=== PATIENT | female | born 1955 | race Caucasian/White ===

== ENCOUNTER 2018-08-31 16:56 | Observation (INO) ==
[2018-08-31 18:36] LABS: Basophils # 0.1 10*3/uL (0.0-0.2); Basophils % 0.6 % (0.0-0.8); Eosinophils # 0.1 10*3/uL (0.0-0.87); Eosinophils % 1.1 % (0.00-10.9); Hematocrit 38.6 VOL% (35.7-47.0); Immature Granulocytes % 0.5 %; Immature Granulocytes Absolute 0.04 #; Lymphocytes # 0.9 10*3/uL (1.4-4.0); Lymphocytes % 10.9 % (21.3-54.2); Mean Corpuscular HGB Conc 31.1 GM/DL (32-36); Mean Corpuscular Hemoglobin 27 PG (27-34); Mean Corpuscular Volume 86.5 FL (87-102); Mean Platelet Volume 10.7 FL (9.6-12.0); Monocytes # 0.4 10*3/uL (0.11-0.8); Monocytes % 4.9 % (1.7-12.7); Neutrophils # 6.9 10*3/uL (1.4-7.4); Platelet Count 228 T/CUMM (130-400); Red Blood Count 4.46 MC/CUMM (3.8-5.5); White Blood Count 8.4 T/CUMM (4-12)
[2018-08-31 18:44] LABS: INR 0.9; PT Patient Result 9.8 SECS; Partial Thromboplastin Time < 21.0 SECS (0-40)
[2018-08-31 18:48] LABS: Apearance,Urine CLEAR (Clear); Bilirubin,Urine Negative (Negative); Blood, Urine Moderate mg/dL (Negative); Glucose,Urine (UA) Negative (Negative); Hyaline Casts,Urine 1 /LPF (0-3); Ketones,Urine Negative (Negative); Mucus,Urine Occasional /LPF (Occasional); Nitrite,Urine Negative (Negative); Protein,Urine Negative; RBC,Urine 2 /HPF (0-4); Squamous Epithelial Cell,Urine Occasional /HPF (0-10); Urine Color Straw (Yellow); Urine Specific Gravity 1.009 (1.001-1.035); Urine Urobilinogen < 2.0 EU/DL (0.2-1.0); WBC,Urine <1 /HPF (0-6)
[2018-08-31 18:57] LABS: Alanine Aminotransferase 20 U/L (13-56); Albumin 3.8 G/DL (3.4-5.0); Alkaline Phosphatase 83 U/L (45-117); Aspartate Amino Transferase 14 U/L (0-37); Bilirubin,Total < 0.39 MG/DL (0.2-1.0); Blood Urea Nitrogen 30 MG/DL (7-18); Calcium 9.6 MG/DL (8.5-10.1); Glucose 104 MG/DL (74-106); Osmolality,Calculated 284.4 MOS/KG (273-304); Potassium 3.7 MMOL/L (3.5-5.1); Sodium 140 MMOL/L (136-145); Total Protein 8.1 G/DL (6.4-8.3); Troponin I < 0.015 NG/ML (0.00-0.045)
[2018-08-31 19:01] LABS: Barbiturates Screen,Urine Negative (Negative); Benzodiazepines Screen,Urine Negative (Negative); Cannabinoid Screen,Urine Negative (Negative); Opiate Screen,Urine Negative (Negative); Phencyclidine Screen,Urine Negative (Negative)
[2018-08-31] MEDS ORDERED: ASPIRIN EC 325 MG TABLET PO STA (19:19)
[2018-08-31] MEDS ORDERED: GLUCAGON 1 MG VIAL IM PRN (20:36)
[2018-08-31] MEDS ORDERED: DEXTROSE 50% 25 GM/50 ML VIAL IV PRN (20:36)
[2018-08-31] MEDS ORDERED: ONDANSETRON 4 MG/2 ML VIAL IV PRN (20:36)
[2018-08-31] MEDS ORDERED: NITROGLYCERIN SL 0.4 MG TABLET SL PRN (20:50)
[2018-08-31] MEDS ORDERED: SODIUM CHLORIDE 0.9% 1,000 ML IV SCH (21:00)
[2018-08-31] MEDS ORDERED: ALBUTEROL/IPRATROPIUM 3 ML NEB RESP TX PRN (21:02)
[2018-08-31] MEDS: GABAPENTIN 300 MG CAPSULE PO SCH (22:50)
[2018-08-31] MEDS: ATORVASTATIN 80 MG TABLET PO SCH (22:50)
[2018-08-31] MEDS: ENOXAPARIN 40 MG/0.4 ML SYRINGE SUBCUT SCH (22:50)
[2018-08-31] MEDS: busPIRone 15 MG TABLET PO SCH (22:50)
[2018-09-01] MEDS ORDERED: GLUCAGON 1 MG VIAL IM PRN (01:32)
[2018-09-01] MEDS ORDERED: DEXTROSE 50% 25 GM/50 ML VIAL IV PRN (01:32)
[2018-09-01] MEDS: ACETAMINOPHEN 325 MG TABLET PO PRN ×2 (02:55→20:53)
[2018-09-01 04:21] LABS: Basophils % 0.7 % (0.0-0.8); Eosinophils # 0.1 10*3/uL (0.0-0.87); Eosinophils % 2.4 % (0.00-10.9); Hematocrit 34.4 VOL% (35.7-47.0); Hemoglobin 10.4 GM/DL (12.0-16.0); Immature Granulocytes % 0.3 %; Immature Granulocytes Absolute 0.02 #; Lymphocytes # 1.2 10*3/uL (1.4-4.0); Lymphocytes % 21.2 % (21.3-54.2); Mean Corpuscular HGB Conc 30.2 GM/DL (32-36); Mean Corpuscular Hemoglobin 26 PG (27-34); Mean Platelet Volume 10.6 FL (9.6-12.0); Monocytes # 0.5 10*3/uL (0.11-0.8); Monocytes % 7.8 % (1.7-12.7); Neutrophils # 3.9 10*3/uL (1.4-7.4); Neutrophils % 67.6 % (38.7-73.9); Platelet Count 226 T/CUMM (130-400); White Blood Count 5.8 T/CUMM (4-12)
[2018-09-01 04:52] LABS: Calcium 9.2 MG/DL (8.5-10.1); Osmolality,Calculated 284.3 MOS/KG (273-304); Potassium 3.3 MMOL/L (3.5-5.1); Thyroid Stimulating Hormone 1.47 uIU/ml (0.358-3.74)
[2018-09-01 04:54] LABS: Risk Ratio 3.31; VLDL CHOLESTEROL 40.6 MG/DL
[2018-09-01] MEDS ORDERED: [UNRECOGNIZED DRUG - OTHER] PO SCH (09:00)
[2018-09-01] MEDS ORDERED: LEVOCETIRIZINE DIHYDROCHLORIDE 5 MG PO SCH (09:00)
[2018-09-01] MEDS: CHOLECALCIFEROL 1,000 UNIT TABLET PO SCH (09:06)
[2018-09-01] MEDS: LOSARTAN/HCTZ 50-12.5 MG TABLET PO SCH (09:07)
[2018-09-01] MEDS: CLOPIDOGREL 75 MG TABLET PO SCH (09:07)
[2018-09-01] MEDS: METOPROLOL SUCCINATE XL 50 MG TABLET PO SCH (09:07)
[2018-09-01] MEDS: FUROSEMIDE 40 MG TABLET PO SCH (09:07)
[2018-09-01] MEDS: PANTOPRAZOLE 40 MG TABLET PO SCH (09:07)
[2018-09-01] MEDS: amLODIPine 10 MG TABLET PO SCH (09:07)
[2018-09-01] MEDS: busPIRone 15 MG TABLET PO SCH ×6 (09:07→23:53)
[2018-09-01] MEDS: GABAPENTIN 300 MG CAPSULE PO SCH ×3 (09:07→21:38)
[2018-09-01] MEDS ORDERED: LORazepam 2 MG/1 ML VIAL IV ONE (09:47)
[2018-09-01] MEDS: INSULIN REGULAR 100 UNIT/ML SUBCUT SCH (20:45)
[2018-09-01] MEDS: ATORVASTATIN 80 MG TABLET PO SCH (20:54)
[2018-09-01] MEDS: GABAPENTIN 600 MG TABLET PO SCH (21:30)
[2018-09-01] MEDS: ENOXAPARIN 40 MG/0.4 ML SYRINGE SUBCUT SCH (21:30)
[2018-09-02 05:28] LABS: Basophils # 0.1 10*3/uL (0.0-0.2); Basophils % 1.2 % (0.0-0.8); Eosinophils # 0.2 10*3/uL (0.0-0.87); Eosinophils % 3.3 % (0.00-10.9); Hematocrit 34.8 VOL% (35.7-47.0); Hemoglobin 10.4 GM/DL (12.0-16.0); Lymphocytes # 1.7 10*3/uL (1.4-4.0); Lymphocytes % 34.1 % (21.3-54.2); Mean Corpuscular HGB Conc 29.9 GM/DL (32-36); Mean Corpuscular Hemoglobin 26 PG (27-34); Mean Corpuscular Volume 86.6 FL (87-102); Monocytes # 0.5 10*3/uL (0.11-0.8); Monocytes % 9.1 % (1.7-12.7); Neutrophils # 2.6 10*3/uL (1.4-7.4); Neutrophils % 52.3 % (38.7-73.9); Platelet Count 217 T/CUMM (130-400); Red Blood Count 4.02 MC/CUMM (3.8-5.5); Red Cell Distribution Width 14.9 % (9.3-17.3); White Blood Count 4.9 T/CUMM (4-12)
[2018-09-02 05:57] LABS: Calcium 9.3 MG/DL (8.5-10.1); Osmolality,Calculated 290.1 MOS/KG (273-304); Potassium 3.4 MMOL/L (3.5-5.1)
[2018-09-02] MEDS: POTASSIUM CHLORIDE 20 MEQ TABLET PO PRN ×3 (09:21→16:55)
[2018-09-02] MEDS: INSULIN REGULAR 100 UNIT/ML SUBCUT SCH ×4 (09:21→21:18)
[2018-09-02] MEDS: LOSARTAN/HCTZ 50-12.5 MG TABLET PO SCH (09:21)
[2018-09-02] MEDS: CHOLECALCIFEROL 1,000 UNIT TABLET PO SCH (09:21)
[2018-09-02] MEDS: amLODIPine 10 MG TABLET PO SCH (09:21)
[2018-09-02] MEDS: METOPROLOL SUCCINATE XL 50 MG TABLET PO SCH (09:22)
[2018-09-02] MEDS: GABAPENTIN 300 MG CAPSULE PO SCH (09:22)
[2018-09-02] MEDS: CLOPIDOGREL 75 MG TABLET PO SCH (09:22)
[2018-09-02] MEDS: FUROSEMIDE 40 MG TABLET PO SCH (09:22)
[2018-09-02] MEDS: PANTOPRAZOLE 40 MG TABLET PO SCH (09:22)
[2018-09-02] MEDS: busPIRone 15 MG TABLET PO SCH ×2 (09:22→21:18)
[2018-09-02] MEDS: ATORVASTATIN 80 MG TABLET PO SCH (21:18)
[2018-09-02] MEDS: ENOXAPARIN 40 MG/0.4 ML SYRINGE SUBCUT SCH (21:19)
[2018-09-02] MEDS: GABAPENTIN 600 MG TABLET PO SCH (21:19)
[2018-09-03] MEDS: INSULIN REGULAR 100 UNIT/ML SUBCUT SCH ×2 (09:17→12:10)
[2018-09-03] MEDS: GABAPENTIN 300 MG CAPSULE PO SCH (09:18)
[2018-09-03] MEDS: CHOLECALCIFEROL 1,000 UNIT TABLET PO SCH (09:18)
[2018-09-03] MEDS: CLOPIDOGREL 75 MG TABLET PO SCH (09:18)
[2018-09-03] MEDS: METOPROLOL SUCCINATE XL 50 MG TABLET PO SCH (09:19)
[2018-09-03] MEDS: LOSARTAN/HCTZ 50-12.5 MG TABLET PO SCH (09:19)
[2018-09-03] MEDS: busPIRone 15 MG TABLET PO SCH (09:19)
[2018-09-03] MEDS: PANTOPRAZOLE 40 MG TABLET PO SCH (09:19)
[2018-09-03] MEDS: FUROSEMIDE 40 MG TABLET PO SCH (09:20)
[2018-09-03] MEDS: amLODIPine 10 MG TABLET PO SCH (09:22)
[2018-09-03 11:37] VITALS: BP 159/70
== END 2018-09-03 12:24 | disposition home or self-care (01) ==
LOC: N.EDINP 16:56 → N.ED 16:56 → SUATTDRO 20:20 → N.5E 21:04
PROVIDERS: ADMIT Internal Medicine; ATTEND Internal Medicine

== ENCOUNTER 2022-04-10 23:58 | Inpatient (IN) ==
[2022-04-11 00:44] LABS: Basophils # 0.1 10*3/uL (0.0-0.2); Basophils % 0.9 % (0.0-0.8); Eosinophils # 0.3 10*3/uL (0.0-0.87); Eosinophils % 3.3 % (0.00-10.9); Hematocrit 28.6 VOL% (35.7-47.0); Hemoglobin 9.1 GM/DL (12.0-16.0); Immature Granulocytes % 0.6 %; Immature Granulocytes Absolute 0.05 #; Lymphocytes # 1.9 10*3/uL (1.4-4.0); Lymphocytes % 23.3 % (21.3-54.2); Mean Corpuscular HGB Conc 31.8 GM/DL (32-36); Mean Corpuscular Volume 80.1 FL (87-102); Mean Platelet Volume 9.5 FL (9.6-12.0); Monocytes # 0.6 10*3/uL (0.11-0.8); Monocytes % 7.6 % (1.7-12.7); Neutrophils % 64.3 % (38.7-73.9); Platelet Count 279 T/CUMM (130-400); Red Blood Count 3.57 MC/CUMM (3.8-5.5); Red Cell Distribution Width 18.7 % (9.3-17.3); White Blood Count 8.2 T/CUMM (4-12)
[2022-04-11 01:01] LABS: PT Patient Result 10.6 SECS (10.5-12.0); Partial Thromboplastin Time 26.2 SECS (23.7-32.9)
[2022-04-11 01:02] LABS: Alanine Aminotransferase 20 U/L (13-56); Albumin 2.5 G/DL (3.4-5.0); Alkaline Phosphatase 68 U/L (45-117); Aspartate Amino Transferase 17 U/L (0-37); Bilirubin,Total < 0.39 MG/DL (0.20-1.00); Blood Urea Nitrogen 20 MG/DL (7-18); Calcium 9.1 MG/DL (8.5-10.1); Carbon Dioxide 29 MMOL/L (21-32); Chloride 100 MMOL/L (98-107); Glucose 102 MG/DL (74-106); Osmolality,Calculated 275.8 MOS/KG (273-304); Potassium 3.3 MMOL/L (3.5-5.1); Sodium 137 MMOL/L (136-145); Total Protein 6.1 G/DL (6.4-8.2)
[2022-04-11] MEDS ORDERED: SODIUM CHLORIDE 0.9% 500 ML IV STA ×2 (01:02→01:40)
[2022-04-11] MEDS ORDERED: DEXTROSE 50% 25 GM/50 ML VIAL IV STA (01:02)
[2022-04-11] MEDS ORDERED: DEXTROSE 50% 25 GM/50 ML SYRINGE IV STA (01:13)
[2022-04-11] MEDS ORDERED: POTASSIUM CHLORIDE 20 MEQ TABLET PO STA (01:16)
[2022-04-11] MEDS ORDERED: ONDANSETRON 4 MG/2 ML VIAL IV PRN (02:17)
[2022-04-11] MEDS ORDERED: GLUCAGON 1 MG VIAL IM PRN (02:17)
[2022-04-11] MEDS ORDERED: ACETAMINOPHEN 325 MG TABLET PO PRN (02:17)
[2022-04-11] MEDS ORDERED: DEXTROSE 10% 250 ML BAG IV PRN ×2 (02:27→03:39)
[2022-04-11 02:34] LABS: Bacteria,Urine Occasional /HPF (Few); Hyaline Casts,Urine 11 /LPF (0-3); Mucus,Urine Occasional /LPF (Occasional); Squamous Epithelial Cell,Urine Occasional /HPF (0-10); Urine Appearance Clear (Clear); Urine Color Yellow (Yellow); Urine pH 5.5 (4.5-8.0)
[2022-04-11 02:35] LABS: Bilirubin,Urine Negative (Negative); Blood, Urine Negative (Negative); Glucose,Urine (UA) 100 mg/dL (Negative); Ketones,Urine Negative (Negative); Nitrite,Urine Negative (Negative); Protein,Urine Negative (Negative); Urine Specific Gravity 1.015 (1.001-1.035); Urine Urobilinogen 0.2 eU/dL (<2.0)
[2022-04-11 03:02] LABS: Barbiturates Screen,Urine Negative (Negative); Benzodiazepines Screen,Urine Negative (Negative); Cannabinoid Screen,Urine Negative (Negative); Opiate Screen,Urine Negative (Negative); Phencyclidine Screen,Urine Negative (Negative)
[2022-04-11 08:13] LABS: Basophils # 0.1 10*3/uL (0.0-0.2); Basophils % 0.7 % (0.0-0.8); Eosinophils # 0.2 10*3/uL (0.0-0.87); Eosinophils % 3.1 % (0.00-10.9); Hematocrit 29.9 VOL% (35.7-47.0); Hemoglobin 9.4 GM/DL (12.0-16.0); Immature Granulocytes % 0.3 %; Immature Granulocytes Absolute 0.02 #; Lymphocytes % 28.6 % (21.3-54.2); Mean Corpuscular HGB Conc 31.4 GM/DL (32-36); Mean Corpuscular Volume 80.4 FL (87-102); Mean Platelet Volume 9.6 FL (9.6-12.0); Monocytes # 0.5 10*3/uL (0.11-0.8); Neutrophils % 60.3 % (38.7-73.9); Platelet Count 266 T/CUMM (130-400); Red Blood Count 3.72 MC/CUMM (3.8-5.5); Red Cell Distribution Width 18.7 % (9.3-17.3)
[2022-04-11] MEDS: INSULIN REGULAR 100 UNIT/ML SUBCUT SCH ×4 (08:13→22:13)
[2022-04-11 08:30] LABS: Alanine Aminotransferase 17 U/L (13-56); Albumin 2.4 G/DL (3.4-5.0); Alkaline Phosphatase 64 U/L (45-117); Aspartate Amino Transferase 17 U/L (0-37); Bilirubin,Total < 0.39 MG/DL (0.20-1.00); Blood Urea Nitrogen 18 MG/DL (7-18); Calcium 8.8 MG/DL (8.5-10.1); Carbon Dioxide 30 MMOL/L (21-32); Chloride 104 MMOL/L (98-107); Glucose 92 MG/DL (74-106); Osmolality,Calculated 280.4 MOS/KG (273-304); Potassium 3.7 MMOL/L (3.5-5.1); Sodium 140 MMOL/L (136-145); Total Protein 5.9 G/DL (6.4-8.2)
[2022-04-11] MEDS ORDERED: PANTOPRAZOLE 40 MG TABLET PO SCH (09:00)
[2022-04-11] MEDS: ENOXAPARIN 40 MG/0.4 ML SYRINGE SUBCUT SCH (09:29)
[2022-04-11] MEDS ORDERED: NITROGLYCERIN SL 0.4 MG TABLET SL PRN (12:41)
[2022-04-11] MEDS: SERTRALINE 25 MG TABLET PO SCH (14:49)
[2022-04-11] MEDS: MONTELUKAST 10 MG TABLET PO SCH (14:49)
[2022-04-11] MEDS: PANTOPRAZOLE 40 MG TABLET PO SCH (14:49)
[2022-04-11] MEDS: ASPIRIN CHEW 81 MG TABLET PO SCH (14:49)
[2022-04-11] MEDS: CETIRIZINE 10 MG TABLET PO SCH (14:50)
[2022-04-11] MEDS: OXYBUTYNIN XL 10 MG TABLET PO SCH (16:57)
[2022-04-11] MEDS: GABAPENTIN 300 MG CAPSULE PO SCH (20:48)
[2022-04-11] MEDS: busPIRone 15 MG TABLET PO SCH (20:48)
[2022-04-11] MEDS: ROSUVASTATIN 20 MG TABLET PO SCH (20:48)
[2022-04-11] MEDS: HydrOXYzine PAMOATE 25 MG CAPSULE PO SCH (20:49)
[2022-04-12 06:12] LABS: Basophils # 0.1 10*3/uL (0.0-0.2); Basophils % 0.9 % (0.0-0.8); Eosinophils # 0.3 10*3/uL (0.0-0.87); Eosinophils % 4.7 % (0.00-10.9); Hematocrit 28.3 VOL% (35.7-47.0); Hemoglobin 8.8 GM/DL (12.0-16.0); Immature Granulocytes % 0.4 %; Immature Granulocytes Absolute 0.02 #; Lymphocytes # 2.3 10*3/uL (1.4-4.0); Lymphocytes % 42.5 % (21.3-54.2); Mean Corpuscular HGB Conc 31.1 GM/DL (32-36); Mean Corpuscular Volume 80.2 FL (87-102); Mean Platelet Volume 9.7 FL (9.6-12.0); Monocytes # 0.4 10*3/uL (0.11-0.8); Monocytes % 7.6 % (1.7-12.7); Neutrophils % 43.9 % (38.7-73.9); Platelet Count 269 T/CUMM (130-400); Red Blood Count 3.53 MC/CUMM (3.8-5.5); Red Cell Distribution Width 19.2 % (9.3-17.3); White Blood Count 5.4 T/CUMM (4-12)
[2022-04-12 06:29] LABS: Calcium 9.1 MG/DL (8.5-10.1); Osmolality,Calculated 280.7 MOS/KG (273-304); Potassium 3.7 MMOL/L (3.5-5.1)
[2022-04-12] MEDS: METOPROLOL SUCCINATE XL 50 MG TABLET PO SCH (10:09)
[2022-04-12] MEDS: ASPIRIN CHEW 81 MG TABLET PO SCH (10:09)
[2022-04-12] MEDS: SERTRALINE 25 MG TABLET PO SCH (10:09)
[2022-04-12] MEDS: CLOPIDOGREL 75 MG TABLET PO SCH (10:09)
[2022-04-12] MEDS: PANTOPRAZOLE 40 MG TABLET PO SCH (10:10)
[2022-04-12] MEDS: CETIRIZINE 10 MG TABLET PO SCH (10:10)
[2022-04-12] MEDS: MONTELUKAST 10 MG TABLET PO SCH (10:10)
[2022-04-12] MEDS: OXYBUTYNIN XL 10 MG TABLET PO SCH (10:10)
[2022-04-12] MEDS: INSULIN REGULAR 100 UNIT/ML SUBCUT SCH ×4 (10:11→22:36)
[2022-04-12] MEDS: ENOXAPARIN 40 MG/0.4 ML SYRINGE SUBCUT SCH (10:13)
[2022-04-12] MEDS: busPIRone 15 MG TABLET PO SCH ×2 (10:13→22:33)
[2022-04-12] MEDS: INSULIN GLARGINE 100 UNIT/ML SUBCUT SCH (13:23)
[2022-04-12] MEDS: ROSUVASTATIN 20 MG TABLET PO SCH (22:31)
[2022-04-12] MEDS: GABAPENTIN 300 MG CAPSULE PO SCH (22:32)
[2022-04-12] MEDS: HydrOXYzine PAMOATE 25 MG CAPSULE PO SCH (22:33)
[2022-04-13 05:29] LABS: Basophils # 0.1 10*3/uL (0.0-0.2); Basophils % 1.1 % (0.0-0.8); Eosinophils # 0.3 10*3/uL (0.0-0.87); Eosinophils % 5.1 % (0.00-10.9); Hematocrit 28.9 VOL% (35.7-47.0); Hemoglobin 9.1 GM/DL (12.0-16.0); Immature Granulocytes % 0.4 %; Immature Granulocytes Absolute 0.02 #; Lymphocytes % 38.3 % (21.3-54.2); Mean Corpuscular HGB Conc 31.5 GM/DL (32-36); Mean Corpuscular Volume 80.7 FL (87-102); Mean Platelet Volume 9.7 FL (9.6-12.0); Monocytes # 0.4 10*3/uL (0.11-0.8); Monocytes % 7.9 % (1.7-12.7); Neutrophils % 47.2 % (38.7-73.9); Platelet Count 267 T/CUMM (130-400); Red Blood Count 3.58 MC/CUMM (3.8-5.5); Red Cell Distribution Width 18.9 % (9.3-17.3); White Blood Count 5.3 T/CUMM (4-12)
[2022-04-13 05:43] LABS: Calcium 9.2 MG/DL (8.5-10.1); Osmolality,Calculated 278.8 MOS/KG (273-304); Potassium 3.9 MMOL/L (3.5-5.1)
[2022-04-13] MEDS: busPIRone 15 MG TABLET PO SCH ×2 (10:10→20:29)
[2022-04-13] MEDS: ASPIRIN CHEW 81 MG TABLET PO SCH (10:10)
[2022-04-13] MEDS: OXYBUTYNIN XL 10 MG TABLET PO SCH (10:10)
[2022-04-13] MEDS: SERTRALINE 25 MG TABLET PO SCH (10:11)
[2022-04-13] MEDS: CETIRIZINE 10 MG TABLET PO SCH (10:11)
[2022-04-13] MEDS: MONTELUKAST 10 MG TABLET PO SCH (10:11)
[2022-04-13] MEDS: CLOPIDOGREL 75 MG TABLET PO SCH (10:11)
[2022-04-13] MEDS: METOPROLOL SUCCINATE XL 50 MG TABLET PO SCH (10:11)
[2022-04-13] MEDS: ENOXAPARIN 40 MG/0.4 ML SYRINGE SUBCUT SCH (10:12)
[2022-04-13] MEDS: INSULIN REGULAR 100 UNIT/ML SUBCUT SCH ×4 (10:14→20:33)
[2022-04-13] MEDS: INSULIN GLARGINE 100 UNIT/ML SUBCUT SCH (10:14)
[2022-04-13] MEDS: PANTOPRAZOLE 40 MG TABLET PO SCH (10:18)
[2022-04-13] MEDS: GABAPENTIN 300 MG CAPSULE PO SCH (20:29)
[2022-04-13] MEDS: HydrOXYzine PAMOATE 25 MG CAPSULE PO SCH (20:29)
[2022-04-13] MEDS: ROSUVASTATIN 20 MG TABLET PO SCH (20:30)
[2022-04-14] MEDS: OXYBUTYNIN XL 10 MG TABLET PO SCH (08:50)
[2022-04-14] MEDS: MONTELUKAST 10 MG TABLET PO SCH (08:50)
[2022-04-14] MEDS: busPIRone 15 MG TABLET PO SCH (08:50)
[2022-04-14] MEDS: ASPIRIN CHEW 81 MG TABLET PO SCH (08:50)
[2022-04-14] MEDS: PANTOPRAZOLE 40 MG TABLET PO SCH (08:50)
[2022-04-14] MEDS: CETIRIZINE 10 MG TABLET PO SCH (08:50)
[2022-04-14] MEDS: METOPROLOL SUCCINATE XL 50 MG TABLET PO SCH (08:51)
[2022-04-14] MEDS: SERTRALINE 25 MG TABLET PO SCH (08:51)
[2022-04-14] MEDS: CLOPIDOGREL 75 MG TABLET PO SCH (08:51)
[2022-04-14] MEDS: INSULIN GLARGINE 100 UNIT/ML SUBCUT SCH (08:52)
[2022-04-14] MEDS: INSULIN REGULAR 100 UNIT/ML SUBCUT SCH ×2 (08:52→15:29)
[2022-04-14] MEDS: ENOXAPARIN 40 MG/0.4 ML SYRINGE SUBCUT SCH (08:52)
[2022-04-14 13:41] VITALS: BP 152/53
== END 2022-04-14 15:28 | disposition home or self-care (01) | DRG 312 ==
LOC: N.ED 23:58 → N.EDINP 23:58 → N.5E 04-11 15:45 → SUATTDRO 04-12 08:55
PROVIDERS: ADMIT Internal Medicine; ATTEND Internal Medicine